=== PATIENT | female | born 1995 | race Caucasian/White ===

== ENCOUNTER 2016-11-04 20:57 | Emergency (ER) | payer OTHER ==
[~2016-11-04] VITALS: Ht 175.2 cm; Wt 59.0 kg
[2016-11-21] MEDS ORDERED: HYDROCODONE BIT1 T11 PO (18:23)
[2016-11-21] MEDS ORDERED: CIPRO500 MG PO (18:23)
[2016-11-21] MEDS ORDERED: FLAGYL500 MG PO (18:23)
[2016-11-26] MEDS ORDERED: MIRALAX POWDER17 G1 PO (17:44)
[2016-12-15] MEDS ORDERED: ACETAMINOPHEN-O1 TAB PO (00:28)
[2016-12-16] MEDS ORDERED: HYDROCODONE BIT1 T11 PO (13:40)
== END 2016-11-05 01:27 | disposition left against medical advice (07) ==
LOC: ED 20:57
DX: N93.9 Abnormal uterine and vaginal bleeding, unspecified (principal); F17.200 Nicotine dependence, unspecified, uncomplicated; Z88.8 Allergy status to other drugs, medicaments and biological substances

== ENCOUNTER 2017-02-19 15:31 | Emergency (ER) | payer OTHER ==
[~2017-02-19] VITALS: Ht 170.1 cm; Wt 56.7 kg
[~2017-02-19 15:31] MED LIST: ACETAMINOPHEN-O1 TAB PO; CIPRO500 MG PO; FLAGYL500 MG PO; HYDROCODONE BIT1 T11 PO; MIRALAX POWDER17 G1 PO
[2017-02-19 16:01] LABS: BILIRUBIN NEGATIVE (NEGATIVE); BLOOD NEGATIVE (NEGATIVE); CLARITY SL CLOUDY (CLEAR); COLOR YELLOW (YELLOW); GLUCOSE NEGATIVE (NEGATIVE); KETONE NEGATIVE (NEGATIVE); LEUKO ESTERASE TRACE (NEGATIVE); NITRITE NEGATIVE (NEGATIVE); PH 5.5 (5.0-9.0); PROTEIN TRACE (NEGATIVE); SPECIFIC GRAVITY >= 1.030 (1.005-1.030)
[2017-02-19 16:03] LABS: BASO % 0.3 % (0.0-1.0); EOS # 0.2 10*3/uL (0.0-0.4); EOS % 1.6 % (1.0-4.0); HEMOGLOBIN 13.8 g/dl (12.0-16.0); LYMPH % 20.7 % (27.0-41.0); MEAN CELL VOLUME 90.7 fl (81.0-99.0); MEAN CORPUSCULAR HGB 30.5 pg (27.0-31.0); MEAN CORPUSCULAR HGB CONC 33.7 g/dl (33.0-37.0); MEAN PLATELET VOLUME 9.4 fl (9.6-12.3); MONO % 10.8 % (3.0-9.0); NEUT # 6.4 10*3/uL (2.3-7.9); NEUT % 66.4 % (47.0-73.0); PLATELET COUNT AUTOMATED 221 10*3/uL (130-400); RED BLOOD COUNT 4.52 10*6/uL (4.10-5.10); RED CELL DISTRI WIDTH 12.6 % (0-14.5); WHITE BLOOD COUNT 9.6 10*3/uL (4.8-10.8)
[2017-02-19 16:18] LABS: BACTERIA 1+; URINE REFLEX COMMENT YES (NO); WBC 21-30 wbc/hpf (0-5)
[2017-02-19 16:21] LABS: ALBUMIN 3.5 gm/dl (3.1-4.5); ALKALINE PHOSPHATASE 67 U/L (45-117); BILIRUBIN, TOTAL 0.4 mg/dl (0.2-1.0); BUN 14 mg/dl (7-24); CARBON DIOXIDE 28 mmol/L (21-32); CHLORIDE 107 mmol/L (98-107); EST GLOM FILT AFRICAN AMERICAN > 60 ml/min; GLUCOSE 67 mg/dL (65-99); POTASSIUM 3.8 mmol/L (3.5-5.1); SGOT/AST 8 IU/L (3-35); SGPT/ALT 8 U/L (12-78); SODIUM 140 mmol/L (136-145); TOTAL PROTEIN 7.7 gm/dL (6.4-8.2)
[2017-02-19] MEDS ORDERED: LEVOFLOXACIN500 MG PO (17:26)
== END 2017-02-19 17:33 | disposition home or self-care (01) ==
LOC: ED 15:31
PROVIDERS: Emergency Medicine
DX: N39.0 Urinary tract infection, site not specified (principal); F17.200 Nicotine dependence, unspecified, uncomplicated; F32.9 Major depressive disorder, single episode, unspecified; Z90.49 Acquired absence of other specified parts of digestive tract; Z98.890 Other specified postprocedural states; Z88.8 Allergy status to other drugs, medicaments and biological substances

== ENCOUNTER 2017-02-23 12:13 | Emergency (ER) | payer OTHER ==
[~2017-02-23] VITALS: Ht 175.2 cm; Wt 59.0 kg
[~2017-02-23 12:13] MED LIST changes: +LEVOFLOXACIN500 MG PO
== END 2017-02-23 17:23 | disposition short-term general hospital (02) ==
LOC: ED 12:13
DX: K22.3 Perforation of esophagus (principal); F32.9 Major depressive disorder, single episode, unspecified; F17.200 Nicotine dependence, unspecified, uncomplicated; Z88.8 Allergy status to other drugs, medicaments and biological substances; Z79.899 Other long term (current) drug therapy

== ENCOUNTER 2017-05-25 05:58 | Emergency (ER) | payer MEDICAID ==
[~2017-05-25] VITALS: Ht 170.1 cm; Wt 56.7 kg
[2017-05-25 06:52] LABS: BASO % 0.3 % (0.0-1.0); EOS # 0.2 10*3/uL (0.0-0.4); EOS % 1.1 % (1.0-4.0); HEMATOCRIT 38.9 % (37.0-47.0); HEMOGLOBIN 13.6 g/dl (12.0-16.0); LYMPH # 2.1 10*3/uL (1.3-4.4); LYMPH % 14.8 % (27.0-41.0); MEAN CELL VOLUME 91.1 fl (81.0-99.0); MEAN CORPUSCULAR HGB 31.9 pg (27.0-31.0); MEAN PLATELET VOLUME 9.7 fl (9.6-12.3); MONO # 1.1 10*3/uL (0.1-1.0); MONO % 7.5 % (3.0-9.0); NEUT # 10.8 10*3/uL (2.3-7.9); PLATELET COUNT AUTOMATED 176 10*3/uL (130-400); RED BLOOD COUNT 4.27 10*6/uL (4.10-5.10); RED CELL DISTRI WIDTH 12.1 % (0-14.5); WHITE BLOOD COUNT 14.2 10*3/uL (4.8-10.8)
[2017-05-25 06:53] LABS: BILIRUBIN NEGATIVE (NEGATIVE); BLOOD NEGATIVE (NEGATIVE); CLARITY CLOUDY (CLEAR); COLOR YELLOW (YELLOW); GLUCOSE NEGATIVE (NEGATIVE); KETONE NEGATIVE (NEGATIVE); LEUKO ESTERASE 2+ (NEGATIVE); NITRITE NEGATIVE (NEGATIVE); PROTEIN NEGATIVE (NEGATIVE); SPECIFIC GRAVITY 1.015 (1.005-1.030); UROBILINOGEN 0.2 E.U./dl (0.2-1.0)
[2017-05-25 07:00] LABS: URINE AMPHETAMINES < 1000 (1000ng/ml); URINE BARBITURATES < 200 (200ng/ml); URINE COCAINE > 300 (300ng/ml)
[2017-05-25 07:11] LABS: ALBUMIN 3.4 gm/dl (3.1-4.5); ALKALINE PHOSPHATASE 62 U/L (45-117); BILIRUBIN, TOTAL 0.5 mg/dl (0.2-1.0); BUN 14 mg/dl (7-24); C-REACTIVE PROTEIN < 0.29 MG/DL (0-0.3); CARBON DIOXIDE 27 mmol/L (21-32); CHLORIDE 103 mmol/L (98-107); EST GLOM FILT AFRICAN AMERICAN > 60 ml/min; GLUCOSE 88 mg/dL (65-99); POTASSIUM 3.7 mmol/L (3.5-5.1); SGOT/AST 12 IU/L (3-35); SGPT/ALT 12 U/L (12-78); SODIUM 137 mmol/L (136-145); TOTAL PROTEIN 7.1 gm/dL (6.4-8.2)
[2017-05-25 07:18] LABS: BACTERIA 1+; CALCIUM OXALATE CRYSTALS TRACE; EPITHELIAL CELLS 21-30; URINE REFLEX COMMENT YES (NO); WBC 21-30 wbc/hpf (0-5)
== END 2017-05-25 07:50 | disposition home or self-care (01) ==
LOC: ED 05:58
PROVIDERS: Emergency Medicine Emergency Medical Services
DX: R10.84 Generalized abdominal pain (principal); F14.10 Cocaine abuse, uncomplicated; D72.829 Elevated white blood cell count, unspecified; F17.200 Nicotine dependence, unspecified, uncomplicated; Z90.49 Acquired absence of other specified parts of digestive tract; Z88.8 Allergy status to other drugs, medicaments and biological substances

== ENCOUNTER 2018-03-28 09:53 | Emergency (ER) | payer MEDICAID ==
[~2018-03-28] VITALS: Ht 170.1 cm; Wt 56.7 kg
[2018-03-28] MEDS ORDERED: VIBRAMYCIN100 MG PO (10:12)
== END 2018-03-28 10:20 | disposition home or self-care (01) ==
LOC: ED 09:53
DX: L03.319 Cellulitis of trunk, unspecified (principal); F14.10 Cocaine abuse, uncomplicated; F17.200 Nicotine dependence, unspecified, uncomplicated; Z90.49 Acquired absence of other specified parts of digestive tract; Z88.8 Allergy status to other drugs, medicaments and biological substances

== ENCOUNTER 2018-07-01 22:09 | Emergency (ER) | payer OTHER ==
[~2018-07-01 22:09] MED LIST changes: +VIBRAMYCIN100 MG PO
[2018-07-01 22:41] LABS: BASO % 0.4 % (0.0-1.0); EOS # 0.2 10*3/uL (0.0-0.4); EOS % 2.4 % (1.0-4.0); HEMATOCRIT 41.2 % (37.0-47.0); HEMOGLOBIN 14.2 g/dl (12.0-16.0); LYMPH # 2.2 10*3/uL (1.3-4.4); MEAN CELL VOLUME 92.6 fl (81.0-99.0); MEAN CORPUSCULAR HGB 31.9 pg (27.0-31.0); MEAN CORPUSCULAR HGB CONC 34.5 g/dl (33.0-37.0); MEAN PLATELET VOLUME 9.7 fl (9.6-12.3); MONO # 0.7 10*3/uL (0.1-1.0); NEUT # 3.9 10*3/uL (2.3-7.9); NEUT % 56.1 % (47.0-73.0); PLATELET COUNT AUTOMATED 178 10*3/uL (130-400); RED BLOOD COUNT 4.45 10*6/uL (4.10-5.10); RED CELL DISTRI WIDTH 11.9 % (0-14.5)
[2018-07-01 22:57] LABS: ALBUMIN 3.7 gm/dl (3.1-4.5); ALKALINE PHOSPHATASE 54 U/L (45-117); BUN 14 mg/dl (7-24); CHLORIDE 106 mmol/L (98-107); CREATININE 1.13 mg/dL (0.55-1.02); LIPASE 68 U/L (73-393); POTASSIUM 3.7 mmol/L (3.5-5.1); SGOT/AST 9 IU/L (3-35); SGPT/ALT 12 U/L (12-78); SODIUM 140 mmol/L (136-145); TOTAL PROTEIN 6.9 gm/dL (6.4-8.2)
[2018-07-01 22:59] LABS: BETA-HCG, QUANT < 1.0 mIU/mL (1-3)
[2018-07-01 23:45] LABS: BILIRUBIN NEGATIVE (NEGATIVE); BLOOD 3+ (NEGATIVE); CLARITY SL CLOUDY (CLEAR); COLOR YELLOW (YELLOW); GLUCOSE NEGATIVE (NEGATIVE); KETONE TRACE (NEGATIVE); LEUKO ESTERASE NEGATIVE (NEGATIVE); NITRITE NEGATIVE (NEGATIVE); PH 5.5 (5.0-9.0); SPECIFIC GRAVITY >= 1.030 (1.005-1.030); UROBILINOGEN 0.2 E.U./dl (0.2-1.0)
[2018-07-01 23:55] LABS: EPITHELIAL CELLS 35-40
[2018-07-01 23:56] LABS: CALCIUM OXALATE CRYSTALS 1+; WBC 0-2 wbc/hpf (0-5)
== END 2018-07-02 00:19 | disposition home or self-care (01) ==
LOC: ED 22:09
PROVIDERS: Student in an Organized Health Care Education/Training Program
DX: R19.7 Diarrhea, unspecified (principal); R10.30 Lower abdominal pain, unspecified; R11.0 Nausea; F17.200 Nicotine dependence, unspecified, uncomplicated; Z88.8 Allergy status to other drugs, medicaments and biological substances; Z90.49 Acquired absence of other specified parts of digestive tract

== ENCOUNTER 2019-09-16 11:04 | Emergency (ER) | payer SELFPAY ==
[~2019-09-16] VITALS: Ht 170.1 cm; Wt 56.7 kg
[2019-09-16] MEDS ORDERED: AMOXICILLIN500 M2 PO (11:26)
[2019-09-16] MEDS ORDERED: Motrin,Rufen800 MG PO (11:26)
== END 2019-09-16 11:40 | disposition home or self-care (01) ==
LOC: ED 11:04
DX: K02.9 Dental caries, unspecified (principal); F17.200 Nicotine dependence, unspecified, uncomplicated; Z88.8 Allergy status to other drugs, medicaments and biological substances; Z79.2 Long term (current) use of antibiotics

== ENCOUNTER 2019-09-20 22:39 | Emergency (ER) | payer SELFPAY ==
[~2019-09-20] VITALS: Ht 170.1 cm; Wt 56.7 kg
[~2019-09-20 22:39] MED LIST changes: +AMOXICILLIN500 M2 PO; +Motrin,Rufen800 MG PO
[2019-09-20] MEDS ORDERED: CLINDAMYCIN HC300 MG PO (23:51)
== END 2019-09-21 01:20 | disposition home or self-care (01) ==
LOC: ED 22:39
DX: K02.9 Dental caries, unspecified (principal); K04.7 Periapical abscess without sinus; Z88.8 Allergy status to other drugs, medicaments and biological substances

== ENCOUNTER 2021-12-26 10:33 | Emergency (ER) | payer SELFPAY ==
[~2021-12-26] VITALS: Ht 170.1 cm; Wt 59.0 kg
[~2021-12-26 10:33] MED LIST changes: +CLINDAMYCIN HC300 MG PO
[2021-12-26] MEDS ORDERED: CLINDAMYCIN HC300 MG PO (11:25)
[2021-12-26] MEDS ORDERED: TYLENOL325 M1 PO (11:25)
[2021-12-26] MEDS ORDERED: NAPROXEN250 MG PO (11:25)
[2021-12-26] MEDS ORDERED: MOTRIN CHI100 MG/51 PO (11:54)
[2021-12-26] MEDS ORDERED: CLEOCIN75 MG/5 ML PO (11:54)
[2021-12-26] MEDS ORDERED: PAIN RELIE160 MG/52 PO (11:54)
== END 2021-12-26 11:45 | disposition home or self-care (01) ==
LOC: ED 10:33
DX: K04.7 Periapical abscess without sinus (principal); F17.200 Nicotine dependence, unspecified, uncomplicated; Z88.8 Allergy status to other drugs, medicaments and biological substances; Z90.49 Acquired absence of other specified parts of digestive tract

== ENCOUNTER 2022-08-19 20:41 | Emergency (ER) | payer SELFPAY ==
[~2022-08-19] VITALS: Ht 340.3 cm; Wt 59.0 kg
[~2022-08-19 20:41] MED LIST changes: +CLEOCIN75 MG/5 ML PO; +MOTRIN CHI100 MG/51 PO; +NAPROXEN250 MG PO; +PAIN RELIE160 MG/52 PO; +TYLENOL325 M1 PO
== END 2022-08-19 22:58 | disposition home or self-care (01) ==
LOC: ED 20:41
DX: M54.16 Radiculopathy, lumbar region (principal); G89.29 Other chronic pain; Z88.8 Allergy status to other drugs, medicaments and biological substances; Z90.49 Acquired absence of other specified parts of digestive tract; F17.200 Nicotine dependence, unspecified, uncomplicated

== ENCOUNTER 2022-09-18 13:39 | Emergency (ER) | payer SELFPAY | END 2022-09-18 18:00 | disposition left against medical advice (07) | LOC: ED 13:39 | DX: Z53.21 Procedure and treatment not carried out due to patient leaving prior to being seen by health care provider (principal) ==

== ENCOUNTER 2022-12-29 01:14 | Emergency (ER) | payer OTHER ==
[~2022-12-29] VITALS: Ht 170.1 cm; Wt 63.5 kg
[2022-12-29] MEDS ORDERED: AMOX-CLAV 875-1 EACH PO (02:57)
== END 2022-12-29 03:19 | disposition home or self-care (01) ==
LOC: ED 01:14
DX: R07.89 Other chest pain (principal); H66.91 Otitis media, unspecified, right ear; F41.9 Anxiety disorder, unspecified

== ENCOUNTER 2023-03-21 15:36 | Emergency (ER) | payer OTHER ==
[~2023-03-21] VITALS: Ht 170.1 cm; Wt 63.5 kg
[~2023-03-21 15:36] MED LIST changes: +AMOX-CLAV 875-1 EACH PO
[2023-03-21] MEDS ORDERED: AMOXICILLIN875 MG PO (16:24)
== END 2023-03-21 16:58 | disposition home or self-care (01) ==
LOC: ED 15:36
DX: H60.93 Unspecified otitis externa, bilateral (principal); J02.9 Acute pharyngitis, unspecified; Z88.8 Allergy status to other drugs, medicaments and biological substances; Z79.2 Long term (current) use of antibiotics; Z90.49 Acquired absence of other specified parts of digestive tract

== ENCOUNTER 2023-05-16 17:51 | Emergency (ER) | payer OTHER ==
[~2023-05-16 17:51] MED LIST changes: +AMOXICILLIN875 MG PO
[2023-05-16 18:14] LABS: BASO % 0.4 % (0.0-1.0); EOS # 0.2 10*3/uL (0.0-0.4); EOS % 2.1 % (1.0-4.0); HEMATOCRIT 38.3 % (37.0-47.0); LYMPH # 2.3 10*3/uL (1.3-4.4); MEAN CELL VOLUME 91.2 fl (81.0-99.0); MEAN CORPUSCULAR HGB CONC 33.9 g/dl (33.0-37.0); MEAN PLATELET VOLUME 9.1 fl (9.6-12.3); MONO # 0.7 10*3/uL (0.1-1.0); MONO % 9.5 % (3.0-9.0); NEUT # 3.9 10*3/uL (2.3-7.9); NEUT % 54.9 % (47.0-73.0); PLATELET COUNT AUTOMATED 227 10*3/uL (130-400); RED CELL DISTRI WIDTH 12.7 % (0-14.5); WHITE BLOOD COUNT 7.1 10*3/uL (4.8-10.8)
[2023-05-16 18:38] LABS: ALKALINE PHOSPHATASE 71 U/L (46-116); BUN 20 mg/dl (9-23); CHLORIDE 103 mmol/L (98-107); POTASSIUM 3.3 mmol/L (3.4-5.1); SGPT/ALT 10 U/L (10-49)
== END 2023-05-16 22:37 | disposition home or self-care (01) ==
LOC: ED 17:51
PROVIDERS: Student in an Organized Health Care Education/Training Program
DX: T50.901A Poisoning by unspecified drugs, medicaments and biological substances, accidental (unintentional), initial encounter (principal); R20.0 Anesthesia of skin; F32.A Depression, unspecified; Z88.8 Allergy status to other drugs, medicaments and biological substances; Z90.49 Acquired absence of other specified parts of digestive tract; Z98.890 Other specified postprocedural states; Y92.89 Other specified places as the place of occurrence of the external cause

== ENCOUNTER 2024-08-07 02:25 | Emergency (ER) | payer OTHER ==
[~2024-08-07] VITALS: Ht 170.1 cm; Wt 63.5 kg
[2024-08-07] MEDS ORDERED: IOHEXOL 300 MG/ML 100 ML VIAL IV ONE (02:40)
[2024-08-07 02:50] LABS: BASO # 0.1 10*3/uL (0.0-0.1); BASO % 0.3 % (0.0-1.0); EOS # 0.1 10*3/uL (0.0-0.4); EOS % 0.6 % (1.0-4.0); HEMATOCRIT 43.9 % (37.0-47.0); LYMPH # 1.9 10*3/uL (1.3-4.4); LYMPH % 12.9 % (27.0-41.0); MEAN CELL VOLUME 91.6 fl (81.0-99.0); MEAN CORPUSCULAR HGB 30.9 pg (27.0-31.0); MEAN CORPUSCULAR HGB CONC 33.7 g/dl (33.0-37.0); MEAN PLATELET VOLUME 9.2 fl (9.6-12.3); MONO # 1.2 10*3/uL (0.1-1.0); MONO % 7.9 % (3.0-9.0); NEUT # 11.4 10*3/uL (2.3-7.9); NEUT % 77.9 % (47.0-73.0); PLATELET COUNT AUTOMATED 348 10*3/uL (130-400); RED BLOOD COUNT 4.79 10*6/uL (4.10-5.10); RED CELL DISTRI WIDTH 11.8 % (0-14.5); WHITE BLOOD COUNT 14.7 10*3/uL (4.8-10.8)
[2024-08-07 03:09] LABS: BUN 22 mg/dl (9-23); CHLORIDE 106 mmol/L (98-107)
== END 2024-08-07 04:22 | disposition left against medical advice (07) ==
LOC: ED 02:25
PROVIDERS: Internal Medicine
DX: S01.01XA Laceration without foreign body of scalp, initial encounter (principal); M25.511 Pain in right shoulder; M54.6 Pain in thoracic spine; D72.829 Elevated white blood cell count, unspecified; F32.A Depression, unspecified; N18.31 Chronic kidney disease, stage 3a; Z53.29 Procedure and treatment not carried out because of patient's decision for other reasons; Z88.8 Allergy status to other drugs, medicaments and biological substances; Z90.49 Acquired absence of other specified parts of digestive tract; Z87.891 Personal history of nicotine dependence; V89.2XXA Person injured in unspecified motor-vehicle accident, traffic, initial encounter; Y93.89 Activity, other specified; Y92.410 Unspecified street and highway as the place of occurrence of the external cause; Y99.8 Other external cause status